=== PATIENT | male | born 1995 | race Caucasian/White ===

== ENCOUNTER 2018-03-19 12:02 | Emergency (ER) | payer MEDICAID ==
[~2018-03-19] VITALS: Ht 167.6 cm; Wt 102.5 kg
[2018-03-19 12:07] VITALS: Ht 167.6 cm; Wt 102.5 kg
[2018-03-19 14:45] VITALS: BP 142/77
== END 2018-03-19 14:45 | disposition home or self-care (01) ==
LOC: ED 12:02
DX: R20.2 Paresthesia of skin (principal)